=== PATIENT | male | born 1945 | race Caucasian/White ===

== ENCOUNTER → 2016-09-14 | Outpatient (CLI) | payer OTHER, BC ==
[2016-09-14 13:51] LABS: ESTIMATED AVERAGE GLUCOSE 134 mg/dl; HA1C FLAG Normal (Normal)
[2016-09-14 15:26] LABS: ALT/SGPT 85 U/L (12-78); AST/SGOT 70 U/L (15-37); BLOOD UREA NITROGEN 20 mg/dl (7-18); BUN/CREATININE RATIO 16.5 (10-20); CALCIUM 9.5 mg/dl (8.5-10.1); CARBON DIOXIDE 26 mmol/L (21-32); CHLORIDE 107 mmol/L (98-107); GLUCOSE 108 mg/dl (70-99); POTASSIUM 4.3 mmol/L (3.5-5.1); SODIUM 139 mmol/L (136-145)
[2016-09-14 15:28] LABS: CHOLESTEROL 146 mg/dl (0-200); CHOLESTEROL/HDL RATIO 3.9; HDL CHOLESTEROL 37 mg/dl; LDL CHOLESTEROL CALCULATED 55 mg/dl; PHOSPHORUS 3.3 mg/dl (2.5-4.9); TRIGLYCERIDES 268 mg/dl (0-150); VERY LOW DENSITY LIPOPROT CALC 54 mg/dl
--- NOTE | 2016-09-30 10:32 | CODING QUERY MEDICAL NECESSITY ---
CQSUPPORTING DIAGNOSIS NEEDED A supporting diagnosis is required for the test/procedure performed on this patient in order for us to be reimbursed by the patient's insurance. Please provide a supporting diagnosis for the following test/procedure listed below next to the test name along with your signature. *If there is no additional diagnosis for this patient that would support the following test/procedure please document that below next to the test/procedure. Test(s)/Procedure(s) that require a supporting diagnosis: KENDRICK 09/14/16 GLYCATED HEMOGLOBIN TEST Provider Signature: Date: Thank you Sandy Herrera Health Information Management Once completed, please kindly fax back to [phone] For questions please call [phone]
== END | disposition home or self-care (01) ==
LOC: C.LABMFLN 08:54
PROVIDERS: ATTEND Family Medicine
DX: Z11.59 Encounter for screening for other viral diseases (principal); E78.5 Hyperlipidemia, unspecified; R73.03 Prediabetes

== ENCOUNTER → 2017-05-15 | Outpatient (CLI) | payer OTHER, BC ==
[2017-05-15 13:30] LABS: ALBUMIN 3.9 gm/dl (3.4-5.0); TOTAL PROTEIN 8.2 gm/dl (6.4-8.2); URIC ACID 5.6 mg/dl (2.6-7.2)
== END | disposition home or self-care (01) ==
LOC: C.LABMFLN 10:16
PROVIDERS: ATTEND Family Medicine
DX: M10.9 Gout, unspecified (principal)

== ENCOUNTER → 2017-07-18 | Outpatient (CLI) | payer OTHER, BC ==
[2017-07-18 19:08] LABS: ALBUMIN 3.7 gm/dl (3.4-5.0); ALT/SGPT 92 U/L (12-78); AST/SGOT 55 U/L (15-37); BLOOD UREA NITROGEN 30 mg/dl (7-18); CALCIUM 8.8 mg/dl (8.5-10.1); CARBON DIOXIDE 27 mmol/L (21-32); CREATININE 1.32 mg/dl (0.60-1.40); GLUCOSE 105 mg/dl (70-99); SODIUM 135 mmol/L (136-145)
[2017-07-18 19:18] LABS: ALKALINE PHOSPHATASE 56 U/L (45-117); CHOLESTEROL 131 mg/dl (0-200); LDL CHOLESTEROL CALCULATED 41 mg/dl
[2017-07-19 05:49] LABS: HEMOGLOBIN A1C 6.8 % (4.5-5.6)
== END | disposition home or self-care (01) ==
LOC: C.LABMFLN 10:51
PROVIDERS: ATTEND Family Medicine
DX: E78.5 Hyperlipidemia, unspecified (principal); R73.03 Prediabetes

== ENCOUNTER 2021-12-24 06:25 | Observation (INO) ==
--- NOTE | 2021-12-14 10:38 | PAT Medication Instructions ---
Medication Instructions Date of Service December 14, 2021 Home Medications Medication Instructions Recorded aspirin 81 mg tablet,delayed 81 mg PO DAILY #90 tabs 10/22/18 release nitroglycerin 0.4 mg sublingual 0.4 mg sublingual Q5M PRN chest 08/11/20 tablet pain #1 tab omeprazole 20 mg capsule,delayed 20 mg PO DAILY #30 caps 08/11/20 release fluticasone propionate 50 2 spray intranasal DAILY PRN nasal 11/02/20 mcg/actuation nasal congestion #15.8 mL spray,suspension metoprolol succinate 50 mg 50 mg PO DAILY #90 tabs 11/10/20 tablet,extended release 24 hr amlodipine 5 mg tablet 5 mg PO DAILY #90 tabs 02/04/21 rosuvastatin 20 mg tablet 20 mg PO DAILY #90 tabs 02/10/21 allopurinol 100 mg tablet 200 mg PO DAILY #180 tabs 11/01/21 aspirin 81 mg tablet,delayed release 81 mg PO DAILY nitroglycerin 0.4 mg sublingual tablet 0.4 mg sublingual Q5M PRN chest pain omeprazole 20 mg capsule,delayed release 20 mg PO DAILY fluticasone propionate 50 mcg/actuation nasal spray,suspension 2 spray intranasal DAILY PRN nasal congestion metoprolol succinate 50 mg tablet,extended release 24 hr 50 mg PO DAILY amlodipine 5 mg tablet 5 mg PO DAILY rosuvastatin 20 mg tablet 20 mg PO DAILY allopurinol 100 mg tablet 200 mg PO DAILY Continue as directed nitroglycerin 0.4 mg sublingual tablet 0.4 mg sublingual Q5M PRN chest pain (if needed) Take morning of surgery With a small sip of water, OTHERWISE NOTHING TO EAT OR DRINK AFTER MIDNIGHT: aspirin 81 mg tablet,delayed release 81 mg PO DAILY (continue as normal unless told otherwise by surgeon) omeprazole 20 mg capsule,delayed release 20 mg PO DAILY fluticasone propionate 50 mcg/actuation nasal spray,suspension 2 spray intranasal DAILY PRN nasal congestion (if needed) metoprolol succinate 50 mg tablet,extended release 24 hr 50 mg PO DAILY amlodipine 5 mg tablet 5 mg PO DAILY rosuvastatin 20 mg tablet 20 mg PO DAILY allopurinol 100 mg tablet 200 mg PO DAILY Take evening before surgery fluticasone propionate 50 mcg/actuation nasal spray,suspension 2 spray intranasal DAILY PRN nasal congestion (if needed) Other Notes If you have any questions please call us at [phone] or [phone] or [phone] or [phone]
--- NOTE | 2021-12-15 11:38 | Anesthesiology Consultation ---
Date of Service December 15, 2021 Assessment & Plan (1) Encounter for pre-operative examination: Chart Review Chart Review: Acceptable Risk for Surgery (pending preop Covid testing results ) and Patient seen in Pre Admission Testing -Discussed hypertriglyceridemia with Dr. Gonzáles- patient is making significant dietary changes- following with cardio and [facility]- getting repeat labs in several months- pt can proceed as scheduled Per PAT appt on 12/15/21, patient denies any recent travel or large group activities. No known Covid positive exposures or Covid related symptoms. No known Covid infection in the past 90 days. Pt is vaccinated for Covid. Preop Covid testing scheduled 12/22/21 = will await results. Educated on importance of self quarantining, social distancing and wearing mask in public for the patient one week prior to surgery and after Covid testing done Seen by PCP 11/23/2021 = seen for follow-up on chronic medical problems. Hyperlipidemiadiscussed dietcontinue lovastatin. CADasymptomaticcontinue meds. Goutwell-controlled on allopurinol. Hypertensionat goal. Follow-up in 3 months. Seen by cardiology 10/12/2021 = patient has been doing well. History of CADstatus post PCI of D1 in 2013. Had echocardiogram and nuclear stress test done May 2020. Patient following with [facility] for hyperlipidemia. Follow-up in 6 months Teaching & Discussion Pre-Anesthesia Teaching/Discussion Notes: Instructed NPO after midnight before surgery,except medications with 15 cc of water. Medication instructions provided according to the PAT guidelines. History Surgery Operation Date: 12/24/21 12:30 Proposed Procedures p Left Total Hip Arthroplasty - Erwin Reddy MD Height/Weight Height: 5 ft 8 in Weight: 95.7 kg Allergies Allergy/AdvReac Type Severity Reaction Status Date / Time atorvastatin [From Lipitor] Allergy Mild Muscle Pain Verified 12/14/21 09:11 clindamycin Allergy Unknown Unknown Verified 12/14/21 09:11 ezetimibe [From Vytorin] Allergy Unknown Unknown Verified 12/14/21 09:11 simvastatin [From Vytorin] Allergy Unknown Unknown Verified 12/14/21 09:11 metformin AdvReac Intermediate Diarrhea Verified 12/15/21 11:41 Medications Home Medications Medication Instructions Recorded Confirmed Last Taken aspirin 81 mg tablet,delayed 81 mg PO DAILY #90 tabs 10/22/18 12/14/21 Unknown release nitroglycerin 0.4 mg sublingual 0.4 mg sublingual Q5M PRN chest 08/11/20 12/14/21 Unknown tablet pain #1 tab omeprazole 20 mg capsule,delayed 20 mg PO DAILY #30 caps 08/11/20 12/14/21 Unknown release fluticasone propionate 50 2 spray intranasal DAILY PRN nasal 11/02/20 12/14/21 Unknown mcg/actuation nasal congestion #15.8 mL spray,suspension metoprolol succinate 50 mg 50 mg PO DAILY #90 tabs 11/10/20 12/14/21 Unknown tablet,extended release 24 hr amlodipine 5 mg tablet 5 mg PO DAILY #90 tabs 02/04/21 12/14/21 Unknown rosuvastatin 20 mg tablet 20 mg PO DAILY #90 tabs 02/10/21 12/14/21 Unknown allopurinol 100 mg tablet 200 mg PO DAILY #180 tabs 11/01/21 12/14/21 Unknown Past Medical History Medical History (Updated 12/15/21 @ 14:33 by Lydia Victor PA-C) Acid reflux Well controlled and stable with Omeprazole Asthma Pt denies this Avascular necrosis of bone of left hip Benign essential hypertension CAD (coronary artery disease) S/p PCI of D1 with resolute stent 02/2014 Negative 05/2020 stress test CKD (chronic kidney disease), stage III Last seen by nephro [facility] ~ Dr Sandoval- 10/22/21- kidney function stable - follow up in six months Colon cancer Dx'ed 07/2020 S/p right hemicolectomy No chemo or radiation Dr Dinh - [facility] Gout No recent issues - remote hx Hx of myocardial infarction [facility] -02/2014- cath- 1 stent placed Hyperlipidemia Triglycerides >500 with recent labs- following with cardio/clinical cardiology pharmacist - has made recent dietary changes Prediabetes States elevated A1c was due to taking prednisone in the past Repeat A1C at [facility] appt 12/15/21 was 6.2 Seasonal allergies Exercise / Class Metabolic Activity II 4-5 Yardwork/Stairs/Walk up hill (one flight of stairs - no chest pain or SOB ) Past Family History Family History Mother Coronary heart disease Father Lung cancer Past Surgical History Surgical History H/O right hemicolectomy for colon CA History of colonoscopy 08/02/21 repeat 3yrs History of coronary artery stent placement 02/2014- [facility]- follows w/ [facility] -last visit 3-4 mos ago History of inguinal hernia repair S/P carpal tunnel release S/P decompression of ulnar nerve Past Anesthesia History No Hx of Anesthesia Complications and No Family Hx of Anesthesia Complications History of PONV No Hx of PONV and No Hx of Motion Sickness Social History Smoking Status: Never smoker Do You Dip or Chew Tobacco: No Hx Alcohol Use: No Hx Substance Use: No substance use type: does not use Review of Systems Patient denies chest pain, shortness of breath, dyspnea on exertion, cough, wheezing, palpitations. No hx of seizures, stroke, apnea/snoring. No hx of blood clots or blood transfusions Physical Exam Vital Signs VITALS BP 110/58 P 66 TEMP 98.0 SP02 97% RESP 16 Constitutional no acute distress ENMT Mouth: no TMJ clicking Thyromental Distance: < 3.5 Finger Breadths (3.0) Mallampati Class: II Missing molars Neck + limited neck extension (mild ) Respiratory normal respiratory effort; no respiratory distress Auscultation: lungs clear to auscultation bilaterally; no wheezes Cardiovascular Rate/Rhythm: regular rate and regular rhythm Heart Sounds: no murmur Vessels: no carotid bruit Extra beat noted Musculoskeletal Spine: no pain with cervical ROM Extremities: extremities normal to inspection Psychiatric Orientation: alert Lab Results Anesthesia Preop Results Results Anesthesia Widget: WBC 9.80 K/ul (4.8-10.8) 12/15/21 Hgb 13.0 g/dl (14.0-18.0) L 12/15/21 Hct 38.2 % (40.1-51.0) L 12/15/21 Plt 152 K/uL (130-400) 12/15/21 Na 135 mmol/L (136-145) L 12/15/21 K 4.2 mmol/L (3.5-5.1) 12/15/21 Cl 104 mmol/L (98-107) 12/15/21 CO2 22 mmol/L (21-32) 12/15/21 BUN 30 mg/dl (6-23) H 12/15/21 Creat 1.40 mg/dl (0.6-1.4) 12/15/21 Glucose Level 126 mg/dl (70-99(Fasting)) H 12/15/21 PT 11.8 Seconds (9.0-12.0) 12/15/21 PTT 27.9 Seconds (21.0-31.0) 12/15/21 INR 1.1 (0.9-1.1) 12/15/21 HA1c 6.2 % (4.5-5.6) H 12/15/21 Blood Type B Positive 12/15/21 Antibody Screen NEGATIVE 12/15/21 Testing Laboratory Results Creatinine chronic and stable since at least 2020 Electrocardiogram Date: 12/15/21 SR with occ PVCs at 66bpm Nonspecific ST abnormality Chest X-Ray Date: 12/15/21 Findings: + NAD Echocardiogram Date: 05/18/20 EF: 55-59% LV Function: normal RWMA: + none Other Findings: + LVH (Mild/concentric) and + diastolic dysfunction (Grade 1) Right ventricular cavity size is normal. RV systolic function is normal. Left atrium moderately enlarged. Right atrium mildly enlarged Mild MR. Mild AR. Mild TR Aortic root is borderline enlarged. Stress Test Date: 05/18/20 Type: nuclear Sisken nuclear cardiac stress test negative for ischemia. LVEF is 54%. Gated SPECT images reveal normal myocardial thickening and wall motion.
[~2021-12-24 06:25] MED LIST: ACETAMINOPHEN 500 MG TAB PO SCH; CeleBREX 200 MG CAP PO SCH; FAMOTIDINE 20 MG TAB PO SCH; LR 500ML BOLUS, THEN 15ML/HR IV SCH; LR 60ML/HR IV SCH; METOCLOPRAMIDE HCL 10 MG TABLET PO SCH; TRANEXAMIC ACID 1,000 MG **IV Pre-op IV SCH; ceFAZolin 2000MG 2,000 MG/15 ML SYR IV SCH
[2021-12-24] MEDS ORDERED: BUPIVACAINE 0.5 % 5 MG/1 ML PF 10ML VIAL ONE (06:29)
--- NOTE | 2021-12-24 06:58 | History & Physical Bridge Note ---
Date of Service December 24, 2021 History & Physical Bridge Note I have examined the patient, reviewed the History & Physical and in the interval since the performance of the History & Physical I have noted the following changes of clinical significance: no changes noted
[2021-12-24] MEDS ORDERED: fentaNYL citrate 100 MCG/2 ML VIAL ONE (07:58)
[2021-12-24] MEDS ORDERED: MIDAZOLAM HCL 1 MG/ML 2ML VIAL ONE ×2 (07:58→09:21)
[2021-12-24] MEDS ORDERED: PROPOFOL IV EMULSION 10 MG/ML 20 ML VIAL IV ONE ×2 (08:15)
[2021-12-24] MEDS ORDERED: HYDROmorphone INJ 2 MG/ML SYR/VIAL IV PRN (08:16)
[2021-12-24] MEDS ORDERED: fentaNYL citrate 100 MCG/2 ML VIAL IV PRN (08:16)
[2021-12-24] MEDS ORDERED: ePHEDrine sulfate 50 MG/ML AMP IV PRN (08:16)
[2021-12-24] MEDS ORDERED: ONDANSETRON INJ 2 MG/ML 2 ML VIAL IV PRN ×2 (08:16→12:29)
[2021-12-24] MEDS ORDERED: ATROPINE SULFATE 0.1 MG/ML 10ML SYR IV PRN (08:16)
[2021-12-24] MEDS ORDERED: ONDANSETRON INJ 2 MG/ML 2 ML VIAL ONE (08:27)
[2021-12-24] MEDS ORDERED: EPINEPHrine INJ 1 MG/ML AMP ONE (08:51)
[2021-12-24] MEDS ORDERED: BUPIVACAINE 0.5 % 5 MG/1 ML MPF 30ML VIAL ONE (08:51)
[2021-12-24] MEDS ORDERED: PHENYLEPHRINE 100MCG/ML 5ML SYR ONE (09:31)
[2021-12-24] MEDS ORDERED: ePHEDrine sulfate 50 MG/ML SYR ONE (09:31)
[2021-12-24] MEDS ORDERED: PHENYLEPHRINE HCL 10 MG/ML VIAL ONE (09:49)
[2021-12-24] MEDS ORDERED: ePHEDrine sulfate 50 MG/ML AMP ONE (10:31)
--- NOTE | 2021-12-24 11:02 | Operative Report ---
PG Post Operative Report Pre & Post Diagnosis Operation Date: 12/24/21 08:50 Pre-Op Diagnosis: Left Hip Avascualar Necrosis with collapse and subchondral fracture Post-Op Diagnosis: Left Hip Avascualar Necrosis with collapse and subchondral fracture I identified the patient and participated in the time-out.: Yes Procedure Operation Date: 12/24/21 08:50 Actual Procedures p Left Total Hip Arthroplasty--Uncemented(Left) - Erwin Reddy MD Surgeon Erwin Reddy MD Water Commissioner Dougie Garcia PA-C Estimated Blood Loss 200 Findings Consistent with Post-Op Diagnosis Operative findings revealed a avascular process of the femoral head with collapse. The cartilage was still intact but there was clearly an area of collapse of the superior aspect of the femoral head. Moderate-sized joint effusion. Fluids 1800 cc. Specimens Left femoral head sent for pathology Drains None Anesthesia Type Spinal MAC Complications none Disposition Accompanied Patient To Recovery: Yes Indications Patient 76-year-old gentleman has been followed for several years with a known history of AVN documented by MRI. He did pretty well for several years for the past 6 months he developed increased pain discomfort. X-rays show collapse of the femoral head. The patient elected proceed with surgical treatment. Description of Procedure Operative implants consist of: 1 Biomet G7 size 52 mm acetabular shell. 2. Six 6.5 cancellous acetabular screws 1 of 35 mm length 125 mm length. 3. [place] hole oncology social worker. 4. Highly cross-linked polyethylene liner with a 52 mm outer diameter 36 mm diameter. 5. DePuy Corail I size 14 KLA femoral stem. 6. +5/36mm ceramic articular ball. The patient was taken the operating, identified, placed on the operating table supine position but all contact areas were properly padded. IV antibiotics tried by anesthesia team. A spinal anesthetic and been implemented holding area. Rolon cath was placed in sterile fashion. The patient was then placed in the right lateral decubitus position. An axillary roll was placed. A Stulberg hip positioner was used for positioning. The left hip and leg were then prepped and draped in usual sterile fashion. A posterolateral approach to the left hip was then performed through a curvilinear incision centered over the greater trochanter. Sharp dissection was got through subcutaneous tissue down to level the IT band gluteal fascia the IT band gluteal fascia incised longitudinally in line with skin incision. The underlying greater bursa was excised. The piriformis and external rotators along with the posterior hip joint capsule were then released from the posterior aspect of the hip as a single layer. Great care was taken throughout the procedure protect the sciatic nerve at all times. Hip was internally rotated and dislocated. Femoral neck osteotomy cut was made with Final Cut about 10 mm above the lesser trochanter. Femoral head was removed and sent for pathology. The femur was retracted anteriorly. Attention drawn the acetabulum. The acetabular labrum was excised. The pulmonary fat was excised. Sequential reaming the acetabular was then performed again with size 45 and progressing up to a 51. I reamed a little bit with a 52 reamer and then placed a 52 mm Biomet cup in about 40 degrees lateral opening and 20 degrees of anteversion. It was fixed with two 6.5 cancellous acetabular screws. Some anterior osteophytes were removed. Attention drawn the femur. The proximal femur was entered with a cookie cutter followed by canal finder. I then broached begin the size 8 and progressing up to 14 we got excellent fit of 14. I trialed the hip and the +5 articular ball provide full stability and full extension and external rotation flexion to 90 degrees of flexion and over r 50 degrees. Leg length seemed appropriate. Soft tissue tension seemed appropriate. I elect to place these implants. All trial implants were removed. An apex hole oncology social worker was placed. Highly cross-linked polyethylene liner was placed. A size 14 KLA femoral stem was impacted in position. A +5/36 mm ceramic articular ball was placed. Hip was located once again found to be stable. Attention drawn toward closing. The wounds irrigated scopes also pulsatile lavage solution. I did inject locally with 60 cc of half percent Marcaine with epinephrine. The posterior capsule and external rotators were repaired as a single layer with #2 Tycron suture with 3 drill holes in the posterior trochanter. The IT band gluteal fascia then closed #1 PDS suture. The subcutaneous tissue was then closed 2 layers of the deep layer #1 Vicryl suture and subcutaneous tissue with 2 Dexon suture in buried interrupted fashion the skin was closed skin thelma. Leg was then cleaned and dried a sterile dressing was Xeroform, 4 fours, ABD pad, foam tape was applied. The patient then transferred to the recovery room in stable condition. Patient tolerated procedure well and there were no complications. Dougie Mcghee, my physician operations assistant, was present for the entire procedure. His assistance was required for proper patient positioning, prepping and draping, surgical exposure, retraction, performing technical details the operation, placement of the implants, closure of the wound, placement of the sterile bandage. I attest to the content of the Intraoperative Record and any orders documented therein. Any exceptions are noted below.
--- NOTE | 2021-12-24 11:53 | XRay Report ---
XR hip 1V LT w pelvis CLINICAL HISTORY: IN PACU - A/P PELVIS and LATERAL HIP TECHNIQUE: 2 views of the left hip and single frontal view of the pelvis were obtained. Comparison: Comparison is made to left hip radiograph 12/13/2021 FINDINGS: Patient is status post total hip arthroplasty with expected postsurgical changes including soft tissu e swelling and subcutaneous emphysema. No periarticular lucency or hardware fracture is seen. Redemon stration of surgical clips projecting in the groin region. IMPRESSION: Expected postoperative appearance status post placement of total hip arthroplasty. ACT 112: Negative or not required by law. Electronically signed by: Ricco Elkins M.D. 12/24/2021 11:52 AM
--- NOTE | 2021-12-24 12:04 | Anesthesiology Progress Note ---
Date of Service December 24, 2021 Anesthesia Post Procedure Vital Signs Vital Signs: Temp Pulse Pulse Resp BP Pulse Ox O2 Del Method 12/24/21 11:45 36.3 C L 95 H 19 101/60 96 Nasal Cannula 12/24/21 11:35 89 22 98/58 L 97 Nasal Cannula 12/24/21 11:05 100 H 21 92/60 L 95 Room Air 12/24/21 11:25 36.0 C L 93 H 18 101/60 92 Room Air 12/24/21 11:15 96 H 18 87/61 L 94 Room Air 12/24/21 10:55 94 H 19 100/56 L 98 Oxymask 12/24/21 10:49 36.3 C L 99 H 20 100/54 L 99 Oxymask 12/24/21 06:59 36.3 C L 73 18 116/56 L 95 Room Air O2 Flow Rate 12/24/21 11:45 2 12/24/21 11:35 2 12/24/21 11:05 12/24/21 11:25 12/24/21 11:15 12/24/21 10:55 2 12/24/21 10:49 2 12/24/21 06:59 Pain Intensity Left Hip: Pain Intensity: 4 Transfer of Care Handoff Completed per policy Notes Mental Status: alert / awake / arousable and participated in evaluation Patient Amnestic to Procedure: Yes Nausea / Vomiting: adequately controlled Pain: adequately controlled Airway Patency, RR, SpO2: stable & adequate BP & HR: stable & adequate Hydration State: stable & adequate Anesthetic Complications: no major complications apparent and Pt Satisfied with anesthetic care
[2021-12-24] MEDS ORDERED: ALUMINUM/MAGNESIUM SUSP 30 ML UDC PO PRN (12:29)
[2021-12-24] MEDS ORDERED: NALOXONE HCL 0.4 MG/1 ML VIAL/CARP IV PRN (12:29)
[2021-12-24] MEDS ORDERED: MAGNESIUM HYDROXIDE SUSP 30 ML UDC PO PRN (12:29)
[2021-12-24] MEDS ORDERED: FLUTICASONE PROPIONATE NA SPR 16 GM BTL NAE PRN (12:29)
[2021-12-24] MEDS ORDERED: HYDROmorphone INJ 0.5 MG/0.5 ML SYR IV PRN (12:29)
[2021-12-24] MEDS ORDERED: NITROGLYCERIN SL 0.4 MG/TAB TAB SL PRN (12:29)
[2021-12-24] MEDS ORDERED: bisacodyL 10 MG SUPP PR PRN (12:29)
[2021-12-24] MEDS ORDERED: METOCLOPRAMIDE HCL INJ 5 MG/ML 2 ML VIAL IV PRN (12:29)
[2021-12-24] MEDS: SODIUM CHLORIDE 0.9% 1000ML 1,000 ML IV SCH ×2 (13:00→22:50)
[2021-12-24] MEDS ORDERED: diphenhydrAMINE Capsule 25 MG CAP PO PRN (13:06)
[2021-12-24] MEDS: KETOROLAC TROMETHAMINE 15 MG/ML VIAL IV SCH ×2 (13:15→20:17)
[2021-12-24] MEDS: ACETAMINOPHEN 500 MG TAB PO SCH ×2 (14:28→22:49)
[2021-12-24] MEDS: traMADol HCL 50 MG TABLET PO PRN (16:46)
[2021-12-24] MEDS: ASCORBIC ACID 500 MG TAB PO SCH (16:47)
[2021-12-24] MEDS ORDERED: TRANEXAMIC ACID / 0.7% NACL 1,000 MG/100 ML BAG IV SCH (17:00)
[2021-12-24] MEDS: ceFAZolin 2000MG 2,000 MG/15 ML SYR IV SCH (17:02)
[2021-12-24] MEDS: ASPIRIN 81 MG ECTAB PO SCH (20:18)
[2021-12-24] MEDS: DOCUSATE SODIUM 100 MG CAP PO SCH (20:19)
[2021-12-24] MEDS: DOCUSATE SODIUM/SENNA 50/8.6MG TAB PO SCH (20:19)
[2021-12-24] MEDS ORDERED: SENNA 8.6 MG TAB PO SCH (21:00)
[2021-12-25] MEDS: ceFAZolin 2000MG 2,000 MG/15 ML SYR IV SCH (00:58)
[2021-12-25] MEDS: KETOROLAC TROMETHAMINE 15 MG/ML VIAL IV SCH ×2 (01:02→09:08)
[2021-12-25] MEDS: traMADol HCL 50 MG TABLET PO PRN ×2 (05:01→11:36)
[2021-12-25] MEDS: ACETAMINOPHEN 500 MG TAB PO SCH (05:02)
[2021-12-25] MEDS ORDERED: dexAMETHasone 10 MG in SYRINGE 0 ML IV SCH (08:00)
[2021-12-25 08:41] LABS: Basophils # (auto) 0.04 K/uL (0-0.2); Basophils % (auto) 0.5 %; Eosinophils # (auto) 0.14 K/uL (0-0.50); Eosinophils % (auto) 1.8 %; Hematocrit (blood only) 34.2 % (40.1-51.0); Hemoglobin 11.9 g/dl (14.0-18.0); Immature Granulocytes # (auto) 0.02 K/uL (0.00-0.02); Immature Granulocytes % (auto) 0.3 %; Lymphocytes # (auto) 1.87 K/uL (1.2-3.4); Lymphocytes % (auto) 23.5 %; Mean Corpuscular Hemoglobin 31.6 pg (25.0-34.0); Mean Corpuscular Hgb Conc 34.8 g/dL (32.0-36.0); Mean Corpuscular Volume 90.7 fL (80.0-100.0); Mean Platelet Volume 9.5 fL (9.4-12.4); Monocytes % (auto) 7.5 %; Neutrophils % (auto) 66.4 %; Platelet Count 116 K/uL (130-400); RDW Standard Deviation 46.4 fL (36.4-46.3); Red Blood Count 3.77 M/uL (4.63-6.08); White Blood Count 7.97 K/ul (4.8-10.8)
[2021-12-25] MEDS ORDERED: amLODIPine BESYLATE 5 MG TAB PO SCH (09:00)
[2021-12-25] MEDS ORDERED: allopurinoL 100 MG TAB PO SCH (09:00)
[2021-12-25] MEDS ORDERED: TAMSULOSIN HCL 0.4 MG CAP PO SCH (09:00)
[2021-12-25] MEDS ORDERED: MULTIVITAMIN TAB PO SCH (09:00)
[2021-12-25] MEDS ORDERED: METOPROLOL SUCC 50MG EXT REL TAB PO SCH (09:00)
[2021-12-25] MEDS ORDERED: ROSUVASTATIN CALCIUM 20 MG TAB PO SCH (09:00)
[2021-12-25] MEDS ORDERED: PANTOprazole 40 MG TAB PO SCH (09:00)
[2021-12-25] MEDS: DOCUSATE SODIUM 100 MG CAP PO SCH (09:07)
[2021-12-25] MEDS: ASPIRIN 81 MG ECTAB PO SCH (09:07)
[2021-12-25] MEDS: ASCORBIC ACID 500 MG TAB PO SCH (09:08)
[2021-12-25] MEDS: DOCUSATE SODIUM/SENNA 50/8.6MG TAB PO SCH (09:08)
[2021-12-25 09:15] LABS: BUN Creatinine Ratio 17.4 (10-20); Calcium 8.8 mg/dl (8.5-10.1); Creatinine Clr Calc Pharmacy 59.7 ml/min; Est GFR (African American) 67.9 ml/min; Est GFR (Non-African American) 58.6 ml/min; Potassium 4.2 mmol/L (3.5-5.1)
--- NOTE | 2021-12-25 11:02 | Progress Notes ---
DATE OF SERVICE: 12/25/2021. SUBJECTIVE: A 76-year-old gentleman postoperative day 1 from a left hip replacement done for AVN. Jaguar burr is doing pretty well. Still has some soreness, but getting around reasonably well. No chest pain or shortness of breath. Thinks he would like to go home this afternoon. OBJECTIVE: VITAL SIGNS: Temperature 36.5. Vital signs are stable. GENERAL: Shows a pleasant middle-aged male. He is sitting up in his bedside chair, looks pretty com fortable. LUNGS: Clear to auscultation. HEART: Regular rate and rhythm. ABDOMEN: Soft, nontender, nondistended. EXTREMITIES: Grossly neurovascularly intact except as follows. Examination of the left hip reveals the dressing to be clean, dry and intact. Leg lengths were equal . Thigh is soft and supple. He is neurologically intact. LABORATORY DATA: Labs are pending. ASSESSMENT: A 76-year-old gentleman postoperative day 1 from a left hip replacement, doing pretty we ll. Pain is controlled. Hip is located. He is neurologically intact. PLAN: 1. DVT prophylaxis includes thigh-high TEDs, SCDs, and aspirin twice a day. 2. PT, OT, weightbear as tolerated. Left total hip protocol. 3. Pain control, doing okay with current pain regimen. 4. Disposition: He is hoping to be discharged to home with some home health. We will see how claudia altman goes today. Job ID: [id number]
--- NOTE | 2021-12-27 09:35 | Discharge Summary ---
Date of Service December 27, 2021 Admission HPI (Per Admitting) The patient is a 76-year-old gentleman and of a total hip patient of mine who presents now for treatment of his left hip. 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 Over the past 6 months, he has developed markedly increased hip pain and discomfort. He describes groin pain, thigh pain, buttock pain radiating down to his knee.He has had some points where he has had trouble even walking. Symptoms tend to wax and wane a bit. He has been pretty miserable lately and would just like to have his hip fixed. He came in today with his for her appointment and asked about just having his hip fixed. He does have a history of some back problems in the past. This pain feels different. Principal Diagnosis Same as "Discharge Diagnosis" noted below under Discharge Instructions. Discharge Exam Gen: A pleasant middle-aged male. He looks to be in pretty good health. HEENT: Benign. Neck: Supple. No lymphadenopathy. Lungs: Clear to auscultation. Heart: Regular rate and rhythm. Abdomen: Soft, nontender, and nondistended. Extremities: Grossly neurovascularly intact except as follows: Examination ofthe left hip reveals the patient walks with an antalgic gait. May be 0.5 cm short on the left side compared to the right if at all. He doeshave pain with any type of hip motion. He has got stiff hip with internal rotation to neutral. Negative straight leg raise. He is neurologically intact. Discharge Data Procedures Performed Operation Date: 12/24/21 08:50 Actual Procedures p Left Total Hip Arthroplasty--Uncemented(Left) - Erwin Reddy MD Hospital Course (1) S/P total left hip arthroplasty: Pt underwent elective L BERNARDO with Dr. Reddy on 12/24. No complications with surgery or post operatively. Discharged home with home health on 12/25. PG Care Time/CCT Total # of Minutes Spent Total Time Spent with Patient: Total time spent is greater than 50% in coordination of care (as documented) at patient's floor/unit and/or counseling patient: Discharge Plan Discharge Items Patient Disposition: Home - Home Health Services Reason For Visit: Left Hip Degenerative Joint Disease Discharge Diagnosis: Left Hip Replacement Activity Comment: Obey\\Follow hip precautions at all times Weightbearing: Full weightbearing Weightbearing Comment: Weightbear as tolerated obeying hip precautions at all times. Non-emergency contact: Surgeon Call non-emergency contact if: you have any medication questions Follow-up/Referrals: Virginie Lovelace MD [Primary Care Provider] - Diet: Carb Consistent or DM2 Addtl Attending Provider Instructions: ACTIVITY RECOMMENDATIONS: Physical Therapy: * Aggressive physical therapy is not usually needed. You will learn to take care of yourself safely and walk. * Follow the "Hip Precautions Instructions." * In some cases, the addiction social worker at the hospital will arrange to have a therapist come to your house for the first couple of weeks to help you learn these skills. * You need to practice on your own or with the help of a family member as needed. * When you learn these skills, most of the therapy can be done on your own. Home Exercise: * You were shown a series of exercises in the hospital. Do these exercises three to four times each day including the exercises you were shown in physical therapy. Walking: * Get up and walk several times each day. For the first four weeks, try not to stand or walk for more than one hour at a time. If you do stand or walk for more than one hour, you will not hurt anything, but your leg will likely swell. * As you feel comfortable, you may change from the walker or crutches to a cane and then to independent walking. MEDICATIONS: New Medicine: * You will likely be taking one or more of these medicines: 1. Tramadol - Take, as directed, when you need it, every six hours to control your pain. 2. Aspirin - Thins your blood to lessen the chance of forming a blood clot. * The most common side effects of pain medicine and iron are nausea and constipation. If nausea or constipation is too much of a problem or if you have any questions about your new medicines or doses, call [facility] at . We will try to help you manage these issues. "VERY IMPORTANT TO READ AND REVIEW" Pain: * The immediate post-operative period after hip replacement surgery is often quite painful. * You are given a prescription for pain medicine. You should take it, as directed, when you need it, especially before physical therapy and before going to bed. Pain that interferes with sleep is very common and can last several months. * You will likely need pain medicine for the first two to four weeks. It will not stop all of the pain. The pain will lessen and as you feel better, you may change to milder pain medicine such as Tylenol. * The most common side effects of pain medicine are nausea and constipation, so don't take more than you need. SPECIAL CARE INSTRUCTIONS: TEDs/Elastic Stockings: * The white elastic stockings help limit swelling and prevent blood clots from forming in your legs. The more you wear them, the more they work. * Wear them for six weeks. Incision Site Care: * Remove dressing postoperative day 2 and then shower. Keep direct shower pressure off the incision site. * After showering, cover thelma with dry gauze and change daily or more frequently if the dressing is getting saturated with drainage. * May completely stop using bandage if wound is dry and no drainage * [place] are removed between 2 and 3 weeks post-op. If your follow-up appointment is made before 2 weeks, please have your appointment re- scheduled. It is too early to remove the thelma. Prevention of Infection: * Take antibiotics one hour before any dental cleaning, dental work, urological procedure, gastrointestinal procedure or any invasive surgery in order to prevent your new joint from getting infected. * You may get the antibiotics from the doctor performing the procedure or you may call our office at before and we will call in a prescription to the pharmacy of your choice. Things to Watch For: * Drainage from the incision site that occurs more than one week after your surgery. * Severely increased leg pain or swelling. * Increased redness at the incision site. * Fever above 102 degrees Fahrenheit. * Unusual chest pain or shortness of breath. * Unusual pain or burning with urination. Call [facility] at with any of the above problems or if you have any questions about your medicines or recovery. FOLLOW UP VISIT: Make an appointment to see your doctor for approximately two weeks after surgery for a progress check and staple removal by calling the office at . Pending Studies at Discharge: No Stand-Alone Forms: [facility], Smoking Cessation Medications and DC Order Prescriptions: Continued nitroglycerin 0.4 mg tablet, sublingual 0.4 mg sublingual Q5M PRN (Reason: chest pain) Qty: 1 0RF Rx Instructions: do not exceed 3 doses per episode omeprazole 20 mg capsule,delayed release(DR/EC) 20 mg PO DAILY Qty: 30 2RF fluticasone propionate 50 mcg/actuation spray,suspension 2 spray intranasal DAILY PRN (Reason: nasal congestion) Qty: 15.8 11RF Rx Instructions: administer into each nostril metoprolol succinate 50 mg tablet extended release 24 hr 50 mg PO DAILY Qty: 90 3RF amlodipine 5 mg tablet 5 mg PO DAILY Qty: 90 3RF rosuvastatin 20 mg tablet 20 mg PO DAILY Qty: 90 3RF allopurinol 100 mg tablet 200 mg PO DAILY Qty: 180 3RF tramadol 50 mg tablet 50 - 100 mg PO Q6H PRN (Reason: pain) Qty: 40 0RF Rx Instructions: Take as needed for Pain. ondansetron HCl 4 mg tablet 4 mg PO Q6 PRN (Reason: nausea) Qty: 20 1RF acetaminophen 500 mg capsule 1,000 mg PO TID 30 Days Qty: 180 0RF Rx Instructions: Take 3 times per day to lessen pain. aspirin [José Miguel Low Dose Aspirin] 81 mg tablet,delayed release (DR/EC) 81 mg PO BID 45 Days Qty: 90 0RF Rx Instructions: Take to prevent blood clots. tamsulosin [Flomax] 0.4 mg capsule 0.4 mg PO DAILY Qty: 7 2RF Rx Instructions: Begin night BEFORE surgery to prevent urinary retention sennosides-docusate sodium [Senokot-S] 8.6-50 mg tablet 1 tab-cap PO BID 14 Days Qty: 28 0RF Rx Instructions: Take daily to prevent constipation Discontinued aspirin 81 mg tablet,delayed release (DR/EC) 81 mg PO DAILY Qty: 90 3RF Discharge Orders: Discharge Order (Routine); Ordered 12/25/21 Ordered By: Erwin Reddy Admission Data Admit Date/Time: 12/24/21 10:52 Attending Provider: Erwin Reddy Admit Provider: Erwni Reddy Primary Care Provider: Virginie Lovelace Other Providers: [facility] Other Interventions: Discharge Summary Assessment (RN) Last Done: 12/25/21 10:54
== END 2021-12-25 12:28 | disposition home health service (06) ==
LOC: ASU 06:25 → 3E 06:25